=== PATIENT | male | born 2000 | race Caucasian/White ===

== ENCOUNTER → 2018-09-23 | Outpatient (CLI) | payer BC ==
--- NOTE | 2018-09-23 12:33 | RADIOLOGY IMAGING REPORT ---
FACILITY: [facility] [place] PATIENT NAME: Arnulfo Alexandre : 2000 MR: [id number] V: [id number] EXAM DATE: ORDERING PHYSICIAN: AMANDA TOSCANO TECHNOLOGIST: Location: [facility] - [place] Patient: Arnulfo Alexandre : 2000 Visit/Account:[id number] Date of Sevice: 09/23/2018 Chest with lateral, two views. HISTORY: Cough, shortness of breath, fever. COMPARISON: None. Three images were obtained. The heart and mediastinum are unremarkable. Pulmonary vessels are unrem arkable. The lungs are clear. The pleural surfaces are unremarkable. No pneumothorax. The bones are unremarkable. IMPRESSION: No evidence of acute cardiopulmonary disease. Report Dictated By: Sheng Merida MD at 09/23/2018 12:27 PM Report E-Signed By: Sheng Merida MD at 09/23/2018 12:29 PM WSN:[id number]
== END ==
LOC: RAD 12:04
PROVIDERS: ATTEND Nurse Practitioner Family
DX: R05 Cough (principal); R06.02 Shortness of breath; R50.9 Fever, unspecified
CPT/HCPCS: 71046